=== PATIENT | female | born 1950 | race Caucasian/White ===

== ENCOUNTER 2018-05-03 14:30 | Outpatient (RCR) | payer MEDICARE, BC, SELFPAY ==
--- NOTE | 2018-04-05 13:24 | PTTR_ITS ---
DATE: 04/05/18 SUBJECTIVE: Janessa states she feels as though the dry needling may have helped some. Is noting less pain at rest. Did have some increase in symptoms following some computer work yesterday. OBJECTIVE: Therapeutic procedures ([id number]). Reviewed activation of deep neck flexors. Janessa did require verbal cues to avoid compensation of SCM activation. * [x] Electrical Stim Unattended - 62017a[1]: applied to the neck x15 min. while seated. * * [x] Ultrasound - (x [8] mins) - 83009p[1]: applied @3 megahertz 1.0 watt per cm sq cont to the left upper trap and levator scap * * Integrated dry needling. She gave verbal consent to receive dry needling today. * Homeostatic points: greater occipital bilaterally 1, greater auricular bilaterally 1/2, spinal accessory left 1, dorsal scapula left 1, supra scapula left 2, spinous process of T7 2, paravertebrals C4 through C7 bilaterally 2. Direct treatment time: 45 min. Total treatment time: 60 min. MM/gc
--- NOTE | 2018-04-11 10:30 | PTTR_ITS ---
DATE: 04/11/18 SUBJECTIVE: Indicated she has had to use her air conditioner the last few days and this still bothers her neck. Overall is doing better with occasional ear pain and neck is generally stiff in the mornings. HEP is going well. OBJECTIVE: x Ultrasound - (x 8 mins) - 64517c3: Thermal ultrasound x 3 mHz at 1.0 w/ cm2 x 8 minutes to left upper traps while in seated position. Manual therapy: ([id number]). Mobilization of neck and upper back while in seated and supine positions. This included tendon massage along the occiput, cervical and upper thoracic vertebrae , grade 2 PA mobs to cervical and upper thoracic vertebrae, TPM to SCMs, upper traps, lev scap and scalenes on the left. Gentle soft tissue stretching of c- spine soft tissue into rotation and side bending. * x Electrical Stim Unattended - 89376y6: Ended session with IFC and cryotherapy to posterior cervical spine soft tissue x 15 minutes while in seated position. Direct treatment time: 35 minutes Total treatment time: 50 minutes
--- NOTE | 2018-04-17 14:47 | PTTR_ITS ---
DATE: 04/17/18 SUBJECTIVE: Janessa reports she was reaching into a lower cabinet yesterday and had bilateral cervical pain that lasted 2 to 3 hrs. Did wake up the next morning symptom free. She is reporting 60% reduction in left sided cervical pain. Continues to deny radicular symptoms in the left upper trapezius / shoulder region. OBJECTIVE: Manual therapy: (88890c0). Cervical mobs, up slips, down slopes, lateral glides, OA release and PRTs to the left upper trapezius and levator scapula followed by left upper trapezius stretching using hold relax technique. Also, worked hold relax mobilization into rotation achieving 80 to 85 right and 75 left. * x Electrical Stim Unattended - 46415c8: applied to the neck while seated * [x] Ultrasound - (x [8] mins) - 45705c[1]:applied @3 megahertz 1.0 watt per cm sq cont to the left upper trap and levator scap Direct treatment time: 3:00 til 3:45 P.M. Held on dry needling today, but Janessa states she gets nearly two days of relief with this. Will reserve this as needed as cost is an issue for her. Plan: Continue as indicated above progressing with her cervical stabilization program. MM/gc
--- NOTE | 2018-04-19 15:00 | PTTR_ITS ---
DATE: 04/19/18 SUBJECTIVE: Roxy states she really feels as though she has turned the corner. Had a very good morning the past couple of mornings with more manageable pain. Has been holding up well with her HEP, and is very compliant with her cervical stabilization strengthening. OBJECTIVE: Manual therapy: (94482x1). Cervical mobs, up slips, down slopes, lateral glides, OA release, PRTs to the upper trap and levator scap. * x Electrical Stim Unattended - 47705h2: applied w/cryotherapy to the neck while seated x15 min. * [x] Ultrasound - (x 8 mins) - 29643k6: applied @1 megahertz 1.0 watt per cm sq continuous to the left upper trap and levator scap Direct treatment time: 3:00 til 3:45 P.M. Plan: Cut back to 1x per week holding on estim post treatment to see how she will hold up. Will continue with manual therapy progressing her cervical stabilization. MM/gc
--- NOTE | 2018-04-26 13:00 | PTTR_ITS ---
DATE: 04/26/18 SUBJECTIVE: Stated she pulled something in her low back when getting up off plinth at last visit. Cancelled last MSP appt due to continued low back pain. Saw the chiropractor about this and that has helpful, but still there. Has another chiropractor appt tomorrow. Would like to skip MSP again today to avoid increased irritation in low back. OBJECTIVE: Manual therapy: (87859f7). Mobilization of left cervical spine region while in seated position due to low back discomfort with lying on plinth. This included gentle manual traction, PRT to left upper traps, lev scap and scalenes, grade 2 PA mobs and TPM to rhomboid region. Performed AAROM into rotation utilizing hold relax technique. * x Ultrasound - (x 8 mins) - 69955l1: Began session with thermal ultrasound to left upper traps while in seated position x 8 minutes at 1.0 w/cm2 at 3 mHz. Ended session with cryotherapy only to posterior cervical spine soft tissue x 10 minutes while in seated position. Held on E-stim as per discussion with supervising PT. Direct treatment time: 30 minutes Total treatment time: 40 minutes
--- NOTE | 2018-05-03 15:52 | PTTR_ITS ---
DATE: 05/03/2018 SUBJECTIVE: My neck is really hurting today. Saw the chiropractor twice last week due to low back pain. He adjusted my neck too. [place] ok all last week. Pain came on the last 24 hours. I need to get back into my wellness program. OBJECTIVE: Manual therapy: ([id number]). Cervical spine mobilization consisting of upslips, downslopes, lateral glides to C3-7, OA relaease, STM to left upper trap and PRTs to left upper trap. IDN (at no charge) to symptomatic point in left upper trap 1 inch with local muscle twitch elicited. Also issued information regarding home TENS unit to purchase. * [] HEP review: [] * [] See flow sheet: [] * [] Provided skilled instruction in proper exercise performance: [] * [] Provided skilled manual cues to facilitate proper muscle recruitment and /or movement pattern: [] * [] Other: [] * [] Traction, Mechanical (flat rate) - 47089e[]: * x Electrical Stim Unattended - 73917v[1]: 15 minutes to upper back and neck focus on left side in sitting with cold pack. * * x Ultrasound - (x 8 mins) - 94211h2: Applied 1 MHz, 1.0 watt/cm2 continuous ultrasound to left upper trap with aquasonic gel. Direct treatment time: 45 Total treatment time: 45 from 3:00-3:45
== END 2018-05-04 23:59 | disposition home or self-care (01) ==
LOC: PT 14:30
PROVIDERS: PCP Nurse Practitioner Family; Referring Provider Registered Nurse; Visit Provider Registered Nurse
DX: M54.2 Cervicalgia (principal)
CPT/HCPCS: 97014; 97035; 97110; 97140

== ENCOUNTER 2019-02-21 09:18 | Outpatient (CLI) | payer MEDICARE, BC, SELFPAY ==
--- NOTE | 2019-02-21 09:04 | DI.RAD_ITS ---
SYMPTOM/DIAGNOSIS: ANTERIOR KNEE PAIN MERCHANT PROJECTIONS BOTH KNEES: The patient has a right knee prosthesis and the patellofemoral joint appears intact. Evaluation of the left knee reveals moderate DJD. There is narrowing of the lateral patellofemoral joint and hypertrophic spurring is demonstrated.
== END 2019-02-21 09:38 ==
PROVIDERS: PCP Nurse Practitioner Family; Visit Provider Orthopaedic Surgery
DX: M25.561 Pain in right knee (principal); Z96.651 Presence of right artificial knee joint; M17.12 Unilateral primary osteoarthritis, left knee
CPT/HCPCS: 73565

== ENCOUNTER 2020-06-23 11:50 | Outpatient (CLI) | payer MEDICARE, BC, SELFPAY ==
--- NOTE | 2020-06-23 09:00 | DI.RAD_ITS ---
EXAM: XR KNEE LT 2V AP,LAT CLINICAL HISTORY: left knee pain. TECHNIQUE: 2D digital imaging was performed. COMPARISON: CR RIGHT KNEE LIMITED 1 OR 2 VIEW from 08/04/2015 CR RIGHT KNEE LIMITED 1 OR 2 VIEW from 03/17/2016 CR RIGHT KNEE LIMITED 1 OR 2 VIEW from 01/18/2017 CR XR knee RT 1V from 02/21/2019 FINDINGS: No acute fracture is present. No bony destructive lesion is seen. There is severe narrowing of the lateral patellofemoral joint and moderate periarticular spurring.. There is mild narrowing of the medial femoral tibial joint and mild spurring from the femoral condyle s and tibial plateaus. A coarse calcification is noted adjacent to the medial femoral condyle. A sma ll joint effusion is seen. IMPRESSION: Degenerative changes, greatest of the lateral patellofemoral joint. DATA REPOSITORY: RADIATION DOSE DELIVERED:
== END 2020-06-23 12:10 ==
PROVIDERS: PCP Nurse Practitioner Family; Referring Provider Nurse Practitioner Family; Visit Provider Orthopaedic Surgery
DX: M17.12 Unilateral primary osteoarthritis, left knee (principal); M25.562 Pain in left knee; G56.02 Carpal tunnel syndrome, left upper limb
CPT/HCPCS: 99214; 73560

== ENCOUNTER 2020-07-09 08:05 | Outpatient (CLI) | payer MEDICARE, BC, SELFPAY ==
[2020-07-11 13:20] LABS: SARS-CoV-2 RNA Not Detected (NotDetected); SARS-CoV-2 RNA Source Nasal/Nares
== END 2020-07-09 08:25 ==
PROVIDERS: PCP Nurse Practitioner Family; Visit Provider Orthopaedic Surgery
DX: Z01.818 Encounter for other preprocedural examination (principal); Z11.59 Encounter for screening for other viral diseases; G56.02 Carpal tunnel syndrome, left upper limb
CPT/HCPCS: U0003

== ENCOUNTER 2020-07-13 06:08 | Day surgery (SDC) | payer MEDICARE, BC, SELFPAY ==
[2020-07-13 06:15] VITALS: BP 141/89; PULSE 64; RESP 18; TEMP 36.2; O2SAT 100
[2020-07-13] MEDS: Lactated Ringers 1,000 ML 80 ML IV (06:53)
[2020-07-13] MEDS: Normal Saline Flush 10 ML SYR IV (07:20)
[2020-07-13] MEDS: ceFAZolin 1 GM/50 ML BAG IVPB (07:34)
[2020-07-13] MEDS: EPINEPHrine 30 MG/30 ML VIAL (07:58)
[2020-07-13] MEDS: Bupivacaine 0.5% Pres-Free 30 ML VIAL (07:58)
--- NOTE | 2020-07-13 08:15 | W.PM.DSUDISC ---
Discharge Plan Disposition Patient Disposition: HOME Condition: Good Discharge Details Reason For Visit: L ECTR Attending Provider: Clive Kruse Primary Care Provider: Marita Lantigua Home Meds and New Rx's Prescriptions: New hydrocodone-acetaminophen 5-325 mg tablet 1 tab PO Q6H PRN (Reason: pain) Qty: 7 RF: 0 Continued meloxicam 15 mg tablet 15 mg PO DAILY Qty: 30 RF: 1 simvastatin [Zocor] 10 MG tablet 10 mg PO DAILY RF: 0 meclizine 12.5 MG tablet 12.5 mg PO PRN RF: 0 calcium carbonate-vitamin D3 1 EACH tablet 1 ea PO DAILY RF: 0 acetaminophen [Tylenol Extra Strength] 500 MG tablet 500 mg PO PRN RF: 0 flaxseed oil 1,000 MG capsule 1,000 mg PO BID RF: 0 lisinopril 10 MG tablet 10 mg PO DAILY RF: 0 metoprolol tartrate 50 MG tablet 50 mg PO BID RF: 0 aspirin [Aspirin Low-Strength] 81 MG tablet,chewable 81 mg PO DAILY RF: 0 naproxen sodium [Aleve] 220 MG capsule 220 mg PO PRN RF: 0 Multi For Her 18 mg iron-600 mcg-40 mcg Capsule 1 tab-cap PO QAM RF: 0 Discharge Instructions Additional Instructions: Elevate L hand above heart level as much as possible overnite tonite. Wiggle fingers L hand 10 times/hour when awake to prevent swelling. Keep dressings and splint dry and in place for 48 hours. After 48 hours, remove splint and dressings and begin to move L wrist. May then shower or bathe and get incision wet. Leave incision uncovered when it is dry and sealed. Use L hand as much as your discomfort allows. Follow up with in 2 weeks. Take tylenol for mild pain. Take hydrocodone for breakthru pain, if needed. Referrals: Clive Kruse MD [ [facility] STAFF PHYSICIAN] - (f/u in 2 weeks.) Equipment/Supplies: Splint Activity:: Activity as Tolerated Remove Dressings/Wound Care:: 48 hours Shower/Bathe:: 48 hours Diet:: As Tolerated Discharge Orders Discharge Orders: Discharge Order (Routine); Ordered 07/13/20 Ordered By: Clive Kruse
[2020-07-13 08:45] VITALS: BP 140/76; PULSE 62; RESP 18; TEMP 36.1; O2SAT 97
--- NOTE | 2020-07-13 09:09 | W.PM.OP ---
Date of service: 07/13/20 Time of Service: 09:09 Operative Note Operative Note DATE OF PROCEDURE: 07/13/20 PRE-OP DIAGNOSIS: Left carpal tunnel syndrome POST-OP DIAGNOSIS: same PROCEDURE: Left ECTR SURGEON: Clive Kruse ANESTHESIA: regional PATHOLOGY: none sent COMPLICATIONS: None Patient was transported to: same day Patient's condition: stable Indications: This is a 70-year-old white female with carpal tunnel symptoms on the left for several years. She has been managed with night splints. She previously has had a successful right E CTR in 2011. Over the last year her carpal tunnel symptoms have not been helped by night splinting. She is still awakened at night by numbness and pain in the median nerve distribution of her left hand. She experiences the numbness throughout the day. She has difficulty holding small objects with her left hand. Carpal tunnel release was recommended to alleviate his symptoms. The patient wished to undergo the endoscopic technique of carpal tunnel release. Risk and complications of procedure have been explained to her in detail. Procedure Description: Patient taken the operating room on 07/13/2020 where she was placed supine operative table. An IV regional anesthetic was administered to the left upper extremity. Once good anesthesia was obtained the left hand wrist and forearm were prepped and draped free in usual sterile fashion. Transverse incision was made in line with the proximal flexion crease of her left wrist. Incision was from the flexor carpi radialis tendon to the flexor carpi ulnaris tendon. Incision was carried down to the fascia. Subcutaneous veins were cauterized. The palmaris longus tendon was retracted radially and a distally based fascial flap was created to gain access to the carpal canal. Synovial reflector was then used to free up any soft tissue attachments to the undersurface of the volar carpal ligament. Series of obturators were used to get room for the endoscope. The endoscope/blade device was inserted in the carpal canal and advanced until the distal edge of the volar carpal ligament was clearly visualized. Care was taken the position endoscope against the hook of the hamate. The trigger was depressed elevating the blade and the elevated blade was then brought out through the skin incision transecting the volar carpal ligament. The endoscope was placed back in the carpal canal and the median nerve was seen to fall into the defect created by transecting the volar carpal ligament, confirming that the release was complete. Littler scissors were then used to perform a subcutaneous fasciotomy in a proximal direction to about 2 inches from the wound. Wound margins were infiltrated with 0.5% Marcaine with epinephrine solution. A median nerve block was performed with 0.5 some Marcaine with epinephrine solution. The wound was irrigated with saline solution. The skin edges were approximated with 2 horizontal mattress sutures of 4-0 nylon suture material. Wounds dressed with Xeroform gauze sterile gauze 4 x 4's wrapped with a Kerlix bandage then wrapped with an Sushant bandage. Her left wrist was placed in a commercial cock-up wrist splint. Patient tolerated the procedure well without complications. Her IV regional anesthesia was reversed without complications and she was discharged to the day surgery unit in good condition. Patient was discharged home from day surgery unit when fully recovered from her IV regional anesthesia. She is given instructions to elevate her left hand above heart level as much as possible overnight tonight. She is encouraged to wiggle her fingers 10 times an hour while awake to prevent swelling. She may remove her dressings and splint in 48 hours and begin to move her left wrist. She may shower and get incision wet after 48 hours. She can leave the incision uncovered when is dry and sealed. She is encouraged to use her left hand is much as discomfort allows. She will take Tylenol for mild pain. She is given a prescription of hydrocodone with APAP 5/325 1 tablet every 6 hours as needed for breakthrough pain. She will follow-up with Dr. Kruse in 2 weeks.
== END 2020-07-13 09:30 | disposition home or self-care (01) ==
PROVIDERS: PCP Nurse Practitioner Family; Visit Provider Orthopaedic Surgery
PROC: 01N54ZZ Release Median Nerve, Percutaneous Endoscopic Approach (ICD-10-PCS; CPT 29848; principal; 2020-07-13 07:30)
DX: G56.02 Carpal tunnel syndrome, left upper limb (principal); E78.00 Pure hypercholesterolemia, unspecified; I10 Essential (primary) hypertension
CPT/HCPCS: 29848; J0690; J1885; J2250; L3908

== ENCOUNTER → 2020-07-28 09:27 | Outpatient (BNVA) | payer MEDICARE, BC, SELFPAY | PROVIDERS: PCP Nurse Practitioner Family; Referring Provider Nurse Practitioner Family; Visit Provider Orthopaedic Surgery | DX: Z47.89 Encounter for other orthopedic aftercare (principal); G56.02 Carpal tunnel syndrome, left upper limb; M70.62 Trochanteric bursitis, left hip; I10 Essential (primary) hypertension | CPT/HCPCS: 99212 ==

== ENCOUNTER 2022-06-16 13:41 | Outpatient (CLI) | payer MEDICARE, BC, SELFPAY ==
--- NOTE | 2022-06-16 10:00 | DI.RAD_ITS ---
Exam(s) XR HAND LT COMPLETE EXAM: XR HAND LT COMPLETE CLINICAL HISTORY: pain in CMCJ. TECHNIQUE: 2D digital imaging was performed of the left hand. Three views were obtained. AP, later al and oblique views were obtained. COMPARISON: No exams were available for comparison FINDINGS: BONES: No acute fracture is present. No bony destructive lesion is seen. JOINTS: No dislocation present. Moderate to severe degenerative changes are seen in the hand with shelia nt space narrowing, subchondral sclerosis and periarticular spurring at multiple sites. The findings are most marked at the articulation of the scaphoid and the quadrangular bones in the interphalangea l joints of the hand. SOFT TISSUE: Normal. IMPRESSION: DJD of the hand. DATA REPOSITORY: RADIATION DOSE DELIVERED:
== END 2022-06-16 13:42 | disposition home or self-care (01) ==
LOC: DIORS 13:41
PROVIDERS: PCP Nurse Practitioner Family; Referring Provider Nurse Practitioner Family; Visit Provider Physician Assistant Surgical
DX: M19.042 Primary osteoarthritis, left hand (principal); M65.341 Trigger finger, right ring finger; Z96.641 Presence of right artificial hip joint; Z96.642 Presence of left artificial hip joint; Z96.651 Presence of right artificial knee joint
CPT/HCPCS: 99214; 73130

== ENCOUNTER 2022-06-21 03:37 | Outpatient (CLI) | payer MEDICARE, BC, SELFPAY ==
[2022-06-21 13:30] LABS: ESR 6 mm/hr (0-30)
[2022-06-21 23:04] LABS: Rheumatoid Factor <8.6 IU/mL (<12.0)
[2022-06-22 14:09] LABS: ANA Interpretation Negative (Negative)
[2022-06-23 14:18] LABS: dsDNA Ab, IgG <12.3 IU/mL (<30.0)
== END 2022-06-21 03:38 | disposition home or self-care (01) ==
LOC: LBO 03:37
PROVIDERS: PCP Nurse Practitioner Family; Visit Provider Student in an Organized Health Care Education/Training Program
DX: M25.542 Pain in joints of left hand (principal); M18.12 Unilateral primary osteoarthritis of first carpometacarpal joint, left hand; M65.341 Trigger finger, right ring finger; Z82.61 Family history of arthritis
CPT/HCPCS: 36415; 85652; 86038; 86140; 86225; 86235; 86431

== ENCOUNTER → 2022-07-25 10:14 | Outpatient (BNVA) | payer MEDICARE, BC, SELFPAY | PROVIDERS: PCP Nurse Practitioner Family; Referring Provider Nurse Practitioner Family; Visit Provider Student in an Organized Health Care Education/Training Program | DX: M19.042 Primary osteoarthritis, left hand (principal) | CPT/HCPCS: 99213 ==

== ENCOUNTER 2024-08-16 06:01 | Day surgery (SDC) | payer MEDICARE, BC, SELFPAY ==
[2024-08-16 06:10] VITALS: BP 151/98; PULSE 68; RESP 20; TEMP 36.4; O2SAT 99
[2024-08-16] MEDS: Tropicam./Phenyleph. (1/2.5%) 5 ML BTL OS ×3 (06:22→06:32)
--- NOTE | 2024-08-16 07:14 | W.ANESPRE ---
General Info Date of Service Date Performed: 08/16/24 Height: 5 ft 0.5 in Weight: 85.3 kg Body Mass Index (BMI): 36.1 Surgical Procedure: Operation Date: 08/16/24 07:40 Proposed Procedure Side Surgeon p Cataract Extraction with IOL Implant Left Danny Lema MD Meds Allergies and Home Medications Allergies Allergy/AdvReac Type Severity Reaction Status Date / Time codeine AdvReac Intermediate vomitting Verified 08/16/24 06:24 oxycodone HCl (From Percocet) AdvReac Intermediate Nausea Verified 08/16/24 06:24 Home Medication ?Medication ?Instructions ?Recorded acetaminophen 500 mg tablet 500 mg PO PRN 08/24/14 (Tylenol Extra Strength) aspirin 81 mg chewable tablet 81 mg PO DAILY 08/24/14 (Aspirin Low-Strength) calcium 600 mg (as 1 ea PO DAILY 08/24/14 carbonate)-vitamin D3 5 mcg (200 unit) tablet lisinopril 10 mg tablet 10 mg PO DAILY 08/24/14 meclizine 12.5 mg tablet 12.5 mg PO PRN 08/24/14 metoprolol tartrate 50 mg tablet 50 mg PO BID 08/24/14 naproxen sodium 220 mg capsule 220 mg PO PRN 08/24/14 (Aleve) [id number] fumarate 18 1 tab-cap PO QAM 07/10/20 mg-FA 600 mcg-vit K 40 mcg capsule (Multi For Her) omeprazole 20 mg capsule,delayed 20 mg PO DAILY 05/04/22 release simvastatin 40 mg tablet 40 mg PO DAILY 05/04/22 Current Visit Medications: Current Medications Generic Name Dose Route Start Last Admin Trade Name Freq PRN Reason Stop Dose Admin Acetaminophen 1,000 mg 08/16/24 06:00 Acetaminophen 500 Mg Tab PO 09/15/24 05:59 Q4H PRN PRN Balanced Salt Solution 500 ml 08/16/24 06:00 Balanced Salt Soln.-Plus 500 Ml Bag OP 09/15/24 05:59 DIRECTED DOMINIC Miscellaneous Medication 0 ml 08/16/24 06:00 Prednisolone 1%, Moxifloxacin 0.5%, Bromfenac 0.09% 5.6ml Btl OS 09/15/24 05:59 DIRECTED DOMINIC Miscellaneous Medication 0 ml 08/16/24 06:00 08/16/24 06:32 Tropicam./Phenyleph. (1/2.5%) 5 Ml Btl OS 09/15/24 05:59 1 drp DIRECTED DOMINIC Administration Tetracaine HCl 0 ml 08/16/24 06:00 Tetracaine 0.5% 4 Ml Btl OS 09/15/24 05:59 DIRECTED DOMINIC PFSH Active Problems Active Problems: Problem Status Onset Code Cortical age-related cataract, left eye Acute H25.012 Nuclear age-related cataract, left eye Acute H25.12 Trigger finger, right ring finger Acute M65.341 Arthritis of carpometacarpal joint Acute M19.049 Thyroid nodule Acute E04.1 Hyperlipidemia Acute E78.5 Trochanteric bursitis, left hip Acute M70.62 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 Left carpal tunnel syndrome Acute G56.02 Medical History Medical History Arthritis Diverticulosis GERD (gastroesophageal reflux disease) Hypertension Obesity Prolapse of bladder Vertigo Surgical History Surgical History Cholecystectomy 06/1998 colporrhaphy posterior 05.24.2012 Status post carpal tunnel release Right ECTR -DOS: 02/28/2012 Status post total right knee replacement (02/27/17) Tonsillectomy 1963 Total replacement of hip bilat L=12.8.2007 R=11.22.2003 Vaginal hysterectomy (05/24/12) Tobacco Smoking/Tobacco Use Status: Former Tobacco Use Alcohol Alcohol Intake: never Substance Use Substance use: Never Substance use type: does not use Vital Signs and Lab Results Vital Signs Most Recent Vital Signs in EMR: Most Recent Vital Signs Temp Pulse Resp BP Pulse Ox 36.4 C L 68 20 151/98 H 99 08/16/24 06:10 08/16/24 06:10 08/16/24 06:10 08/16/24 06:10 08/16/24 06:10 Lab Results Blood Type / Crossmatch: No Data to Display Complete Blood Count: No Data to Display Complete Metabolic Panel: No Data to Display Liver Function Panel: No Data to Display Coagulation Panel: No Data to Display Cardiac Panel: No Data to Display Arterial Blood Gas: No Data to Display Venous Blood Gas: No Data to Display Pancreas Panel: No Data to Display Thyroid Panel: No Data to Display Infectious Disease: No Data to Display Blood Cultures: No Data to Display Toxicology Panel: No Data to Display Anesthesia Assessment and Plan Anesthesia History Personal History: No History of Anesthesia Complications Family History: No Family History of Anesthesia Complications Exercise Tolerance Exercise Tolerance: Metabolic Equivalents>4 Pertinent Negatives Pertinent Negatives: No Symptoms of GERD, No Major Cardiovascular Symptoms or Complaints and No Major Pulmonary Symptoms or Complaints Cardiac & Pulmonary Exam Cardiac Exam: Normal S1/S2 Heart Sounds Pulmonary Exam: Clear Bilateral Breath Sounds Implantable Cardiac Device Does patient have a Pacemaker or an ICD?: No Airway Exam Known Difficult Airway: No Mallampati Class: 3 Mouth Opening: Normal (> 3cm) Thyromental Distance: Greater than 3 cm Neck Range of Motion: Limited ROM (arthritis) Neck Circumference: Normal Teeth Condition: Normal Dentition and Removable Dentures/Plates Upper (partial) ASA Classification ASA Score: ASA 2 Emergency Case?: No NPO Status NPO Status: NPO Clears >2 hours, Solids >8 hours Anesthesia Plan Resuscitation Status: Full Code Anesthesia Technique: MAC Anesthesia Airway Planned: Natural Airway Monitors Used: Standard Monitors
[2024-08-16 07:17] VITALS: BMI 36.1
[2024-08-16] MEDS: Lidocaine 1% Pres-Free 5 ML VIAL (07:39)
[2024-08-16] MEDS: Phenylephrine/Lidocaine (15/10) MG/ML 1 ML VIAL (07:41)
[2024-08-16] MEDS: Duovisc Viscoelastic System EACH 1 EACH (07:42)
[2024-08-16] MEDS: Povidone-Iodine Ophth 30 ML BTL (07:43)
[2024-08-16] MEDS: Balanced Salt Soln.-PLUS 500 ML BAG OP (07:44)
[2024-08-16] MEDS: Prednisolone 1%, Moxifloxacin 0.5%, Bromfenac 0.09% 5.6ML BTL OS (07:45)
[2024-08-16] MEDS: Tetracaine 0.5% 4 ML BTL OS (07:46)
[2024-08-16 07:58] VITALS: BP 131/95; PULSE 61; RESP 20; TEMP 36.1; O2SAT 100
--- NOTE | 2024-08-16 07:58 | W.PM.DSUDISC ---
Date of service: 08/16/24 Discharge Plan Disposition Patient Disposition: Home Discharge Details Attending Provider: Danny Lema Primary Care Provider: Radha Goldman Home Meds and New Rx's Prescriptions: No Action meclizine 12.5 MG tablet 12.5 mg PO PRN calcium carbonate-vitamin D3 1 EACH tablet 1 ea PO DAILY acetaminophen [Tylenol Extra Strength] 500 MG tablet 500 mg PO PRN lisinopril 10 MG tablet 10 mg PO DAILY metoprolol tartrate 50 MG tablet 50 mg PO BID aspirin [Aspirin Low-Strength] 81 MG tablet,chewable 81 mg PO DAILY naproxen sodium [Aleve] 220 MG capsule 220 mg PO PRN omeprazole 20 mg capsule,delayed release(DR/EC) 20 mg PO DAILY simvastatin 40 mg tablet 40 mg PO DAILY Multi For Her 18 mg iron-600 mcg-40 mcg Capsule 1 tab-cap PO QAM Discharge Instructions Stand Alone Forms: DSU Post-Op CataractLilly (DSU) Discharge Orders Discharge Orders: Discharge Order (Routine); Ordered 08/16/24 Ordered By: Danny Lema DS: Diagnosis Discharge Diagnosis (1) Cortical age-related cataract, left eye: Status: Resolved (2) Nuclear age-related cataract, left eye: Status: Resolved
--- NOTE | 2024-08-16 07:58 | W.PM.OP ---
Operative Note Operative Note PRE-OP DIAGNOSIS: Nuclear/cortical cataract, left eye POST-OP DIAGNOSIS: same PROCEDURE: Cataract extraction using phacoemulsification with intraocular lens implant, left eye SURGEON: Danny Lema ANESTHESIA TYPE: Local By Surgeon and MAC Refer to Anesthesia Record PATHOLOGY: none sent COMPLICATIONS: None Patient was transported to: same day Patient's condition: stable Implants: Jonathan Clareon [id number] Indications: Progressive decreased vision due to cataract, left eye Procedure Description: CATARACT SURGERY OPERATIVE REPORT PREOPERATIVE DIAGNOSIS: Nuclear/cortical cataract, left eye POSTOPERATIVE DIAGNOSIS: Same OPERATION: Cataract extraction using phacoemulsification with posterior chamber intraocular lens implant, left eye. IOL: IOL Cement Finishing Supervisor/Model: Jonathan Clareon [id number] IOL Power: + 13.0 diopters IOL Serial Number: [id number] Optic Diameter: 6.0mm Haptic/Overall Diameter: 13.0mm PHACO INFO: Jonathan Centurion Vision System with OZil and Active Fluidics Cumulative Dispersed Energy (CDE): 4.97 seconds SURGEON: Danny Lema MD, TROY ANESTHESIA: Monitored Anesthesia Care (MAC), with local sub-tenon's anesthetic infiltration COMPLICATIONS: None SPECIMENS: None INDICATIONS FOR PROCEDURE: The patient is a 74-year-old lady with history of myopia who has developed a symptomatic nuclear/cortical cataract in the left eye. She is significantly symptomatic that she desires cataract surgery and attempt to improve and maximize her vision. The option of cataract surgery was offered to the patient and she wished to proceed. See office notes for detailed information. PROCEDURE: The correct surgical eye was identified and marked as the left eye and the pupil was dilated in the preoperative area using mydriatics and cycloplegics. The dilated pupil size was 8.0 mm. The patient elected to proceed without oral sedation. The patient was brought to the operating room where cardiopulmonary monitoring was instituted and surgical time-out was performed, confirming the correct operative eye and IOL power. Topical anesthesia was administered and ophthalmic povidone-iodine 5% was instilled into the conjunctival fornices. The jose-ocular area was prepped with Betadine 10% solution and draped in the usual sterile fashion for intraocular surgery, including an aperture drape. A Tegaderm transparent film dressing was cut in half and used to cover the lashes and lid margins. Care was taken to sequester the lashes and lid margins under the Tegaderm dressing. A lid speculum was placed between the lids of the operative eye and the Jonathan Lux[employer] Revalia operating microscope was maneuvered into position. Nyla scissors were then used to make a conjunctival buttonhole approximately 6mm posterior to the limbus in the inferonasal quadrant. Blunt dissection was carried out to expose bare sclera, and a blunt-tipped sub-tenon?s anesthesia cannula was introduced and passed posteriorly along the globe where non-preserved plain lidocaine was injected into posterior sub-Tenon?s space. A sideport knife was used to make a paracentesis port. Intraocular phenylephrine/lidocaine was injected into the anterior chamber. The anterior chamber was then filled with viscoelastic. A keratome knife was used construct a two-plane clear corneal tunnel extending 2.0mm into clear cornea. A flap was raised on the anterior capsule and capsulorhexis forceps were used to complete a continuous curvilinear capsulorhexis of 5.0 mm. Balanced salt solution was then used to perform cortical cleaving hydrodissection and nuclear hydrodelineation until the lens could be freely rotated within the capsular bag. The lens nucleus was then disassembled and removed within the capsular bag and iris plane using phacoemulsification. Residual cortical material was removed using the irrigation/aspiration handpiece. The posterior capsule was carefully polished to remove as much residual lens epithelial cells as safely possible. The capsular bag was then inflated and the anterior chamber deepened with viscoelastic. The lens implant described above was inserted into the capsular bag using the Jonathan Autonome Injector. A Kuglen hook was used to dial the IOL into position. Residual viscoelastic was then removed first from posterior to the IOL, then from the anterior chamber using the I/A handpiece. The lens implant was noted to center nicely within the capsular bag. The incisions were stromally hydrated, and the anterior chamber was reformed using BSS. Then 0.5cc of moxifloxacin 1.0mg/ml were injected into the capsular bag and anterior chamber. The incisions were checked with a Weck spear and found to be secure. Several drops of ophthalmic povidone-iodine 5% were then applied to the eye followed by two drops of combination steroid/NSAID/antibiotic solution. The drapes were removed and a clear plastic protective eye shield was placed over the eye. The patient was then returned to Same Day Surgery in stable condition. Date of Procedure: 08/16/24
--- NOTE | 2024-08-16 08:23 | W.ANESPOSTOP ---
Postoperative Evaluation Date, Time and Location Date Performed: 08/16/24 Time Performed: 08:09 Patient Location: Day Surgery Unit Vital Signs Most Recent Imported Vital Signs: Most Recent Vital Signs Temp Pulse Resp BP Pulse Ox 36.1 C L 61 20 131/95 H 100 08/16/24 07:58 08/16/24 07:58 08/16/24 07:58 08/16/24 07:58 08/16/24 07:58 Pain Score Most Recent Pain Score: Most Recent Pain Score Pain Level 0 08/16/24 07:58 Assessment Mental Status: Awake (Alert & Oriented to Patient Baseline) Airway and Respiratory Function: Patent airway with normal (patient baseline) respiratory exam Cardiovascular Function: Hemodynamically Stable Hydration Status: Adequately Hydrated Nausea & Vomiting: No Nausea or Vomiting Pain: Pt. Denies Any Pain Peripheral Nerve Block: Patient did not receive a nerve block
== END 2024-08-16 08:19 | disposition home or self-care (01) ==
LOC: SUR 06:02
PROVIDERS: PCP Nurse Practitioner Family; Visit Provider Ophthalmology
PROC: (CPT 66984; principal; 2024-08-16 07:30)
DX: H25.012 Cortical age-related cataract, left eye (principal); H25.12 Age-related nuclear cataract, left eye
CPT/HCPCS: 66984; 00123; V2632; J2003

== ENCOUNTER 2024-08-23 10:46 | Day surgery (SDC) | payer MEDICARE, BC, SELFPAY ==
--- NOTE | 2024-08-23 08:25 | W.ANESPRE ---
General Info Date of Service Date Performed: 08/23/24 Height: 5 ft 0.5 in Weight: 85.3 kg Body Mass Index (BMI): 36.1 Surgical Procedure: Operation Date: 08/23/24 13:40 Proposed Procedure Side Surgeon p Cataract Extraction with IOL Implant Right Danny Lema MD Meds Allergies and Home Medications Allergies Allergy/AdvReac Type Severity Reaction Status Date / Time codeine AdvReac Intermediate vomitting Verified 08/23/24 11:00 oxycodone HCl (From Percocet) AdvReac Intermediate Nausea Verified 08/23/24 11:00 Home Medication ?Medication ?Instructions ?Recorded acetaminophen 500 mg tablet 500 mg PO PRN 08/24/14 (Tylenol Extra Strength) aspirin 81 mg chewable tablet 81 mg PO DAILY 08/24/14 (Aspirin Low-Strength) calcium 600 mg (as 1 ea PO DAILY 08/24/14 carbonate)-vitamin D3 5 mcg (200 unit) tablet lisinopril 10 mg tablet 10 mg PO DAILY 08/24/14 meclizine 12.5 mg tablet 12.5 mg PO PRN 08/24/14 metoprolol tartrate 50 mg tablet 50 mg PO BID 08/24/14 naproxen sodium 220 mg capsule 220 mg PO PRN 08/24/14 (Aleve) [id number] fumarate 18 1 tab-cap PO QAM 07/10/20 mg-FA 600 mcg-vit K 40 mcg capsule (Multi For Her) omeprazole 20 mg capsule,delayed 20 mg PO DAILY 05/04/22 release simvastatin 40 mg tablet 40 mg PO DAILY 05/04/22 Current Visit Medications: Current Medications Generic Name Dose Route Start Last Admin Trade Name Freq PRN Reason Stop Dose Admin Acetaminophen 1,000 mg 08/23/24 06:00 Acetaminophen 500 Mg Tab PO 09/22/24 05:59 Q4H PRN PRN Balanced Salt Solution 500 ml 08/23/24 06:00 Balanced Salt Soln.-Plus 500 Ml Bag OP 09/22/24 05:59 DIRECTED DOMINIC Miscellaneous Medication 0 ml 08/23/24 06:00 Prednisolone 1%, Moxifloxacin 0.5%, Bromfenac 0.09% 5.6ml Btl OD 09/22/24 05:59 DIRECTED DOMINIC Miscellaneous Medication 0 ml 08/23/24 06:00 Tropicam./Phenyleph. (1/2.5%) 5 Ml Btl OD 09/22/24 05:59 DIRECTED DOMINIC Tetracaine HCl 0 ml 08/23/24 06:00 Tetracaine 0.5% 4 Ml Btl OD 09/22/24 05:59 DIRECTED [facility] PFSH Active Problems Active Problems: Problem Status Onset Code Cortical age-related cataract, right eye Acute H25.011 Nuclear age-related cataract, right eye Acute H25.11 Cortical age-related cataract, left eye Resolved H25.012 Nuclear age-related cataract, left eye Resolved H25.12 Trigger finger, right ring finger Acute M65.341 Arthritis of carpometacarpal joint Acute M19.049 Thyroid nodule Acute E04.1 Hyperlipidemia Acute E78.5 Trochanteric bursitis, left hip Acute M70.62 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 Left carpal tunnel syndrome Acute G56.02 Medical History Medical History Arthritis Diverticulosis GERD (gastroesophageal reflux disease) Hypertension Obesity Prolapse of bladder Vertigo Surgical History Surgical History Cholecystectomy 06/1998 colporrhaphy posterior 05.24.2012 Status post carpal tunnel release Right ECTR -DOS: 02/28/2012 Status post total right knee replacement (02/27/17) Tonsillectomy 1963 Total replacement of hip bilat L=12.8.2007 R=11.22.2003 Vaginal hysterectomy (05/24/12) Tobacco Smoking/Tobacco Use Status: Former Tobacco Use Alcohol Alcohol Intake: never Substance Use Substance use: Never Substance use type: does not use Vital Signs and Lab Results Vital Signs Most Recent Vital Signs in EMR: Temp Pulse Resp BP Pulse Ox 35.9 C L 58 L 14 124/91 H 99 08/23/24 10:52 08/23/24 10:52 08/23/24 10:52 08/23/24 10:52 08/23/24 10:52 Lab Results Blood Type / Crossmatch: No Data to Display Complete Blood Count: No Data to Display Complete Metabolic Panel: No Data to Display Liver Function Panel: No Data to Display Coagulation Panel: No Data to Display Cardiac Panel: No Data to Display Arterial Blood Gas: No Data to Display Venous Blood Gas: No Data to Display Pancreas Panel: No Data to Display Thyroid Panel: No Data to Display Infectious Disease: No Data to Display Blood Cultures: No Data to Display Toxicology Panel: No Data to Display Anesthesia Assessment and Plan Anesthesia History Personal History: No History of Anesthesia Complications Family History: No Family History of Anesthesia Complications Exercise Tolerance Exercise Tolerance: Metabolic Equivalents>4 Cardiac & Pulmonary Exam Cardiac Exam: Normal S1/S2 Heart Sounds Pulmonary Exam: Clear Bilateral Breath Sounds Implantable Cardiac Device Does patient have a Pacemaker or an ICD?: No Airway Exam Known Difficult Airway: No Mallampati Class: 3 Mouth Opening: Normal (> 3cm) Thyromental Distance: Greater than 3 cm Neck Range of Motion: Limited ROM (arthritis) Neck Circumference: Normal Teeth Condition: Normal Dentition and Removable Dentures/Plates Upper (partial) ASA Classification ASA Score: ASA 2 Emergency Case?: No NPO Status NPO Status: NPO Clears >2 hours, Solids >8 hours Anesthesia Plan Resuscitation Status: Full Code Anesthesia Technique: MAC Anesthesia Airway Planned: Natural Airway Monitors Used: Standard Monitors Preoperative Comments:: 74 yo for repeat cataract. No MKO previous, no issues. No changes in health history.
[2024-08-23 10:52] VITALS: BP 124/91; PULSE 58; RESP 14; TEMP 35.9; O2SAT 99
[2024-08-23] MEDS: Tropicam./Phenyleph. (1/2.5%) 5 ML BTL OD ×3 (11:03→11:13)
[2024-08-23 11:22] VITALS: BMI 36.1
[2024-08-23] MEDS: Duovisc Viscoelastic System EACH 1 EACH (11:55)
[2024-08-23] MEDS: Povidone-Iodine Ophth 30 ML BTL (11:57)
[2024-08-23] MEDS: Lidocaine 1% Pres-Free 5 ML VIAL (11:57)
[2024-08-23] MEDS: Phenylephrine/Lidocaine (15/10) MG/ML 1 ML VIAL (11:57)
[2024-08-23] MEDS: Balanced Salt Soln.-PLUS 500 ML BAG OP (11:58)
[2024-08-23] MEDS: Tetracaine 0.5% 4 ML BTL OD (11:59)
[2024-08-23] MEDS: Prednisolone 1%, Moxifloxacin 0.5%, Bromfenac 0.09% 5.6ML BTL OD (11:59)
[2024-08-23 12:09] VITALS: BP 105/88; PULSE 69; RESP 16; TEMP 36.2; O2SAT 99
--- NOTE | 2024-08-23 12:12 | ROE_ITS ---
Operative Note Operative Note PRE-OP DIAGNOSIS: Nuclear/cortical cataract, right eye POST-OP DIAGNOSIS: same PROCEDURE: Cataract extraction using phacoemulsification with intraocular lens implant, right eye SURGEON: Danny Lema ANESTHESIA TYPE: Local By Surgeon and MAC Refer to Anesthesia Record ESTIMATED BLOOD LOSS: 0 PATHOLOGY: none sent COMPLICATIONS: None Patient was transported to: same day Patient's condition: stable Implants: Jonathan Clareon [id number] Indications: Progressive decreased vision due to cataract, right eye Procedure Description: CATARACT SURGERY OPERATIVE REPORT PREOPERATIVE DIAGNOSIS: Nuclear/cortical cataract, right eye POSTOPERATIVE DIAGNOSIS: Same OPERATION: Cataract extraction using phacoemulsification with posterior chamber intraocular lens implant, right eye. IOL: IOL Patient Safety Coordinator/Model: Jonathan Clareon [id number] IOL Power: +13.5 diopters IOL Serial Number: [id number] Optic Diameter: 6.0mm Haptic/Overall Diameter: 13.0mm PHACO INFO: Jonathan Centurion Vision System with OZil and Active Fluidics Cumulative Dispersed Energy (CDE): 2.25 seconds SURGEON: Danny Lema MD, TROY ANESTHESIA: Monitored Anesthesia Care (MAC), with local sub-tenon's anesthetic infiltration COMPLICATIONS: None SPECIMENS: None INDICATIONS FOR PROCEDURE: The patient is a 74-year-old lady with history of diminished visual acuity in both eyes secondary to the development of bilateral nuclear/cortical cataract. She has already undergone cataract surgery in the left eye and is doing well postoperatively. She now presents for cataract surgery in the right eye. See office notes for detailed information. PROCEDURE: The correct surgical eye was identified and marked as the right eye and the pupil was dilated in the preoperative area using mydriatics and cycloplegics. The dilated pupil size was 8.0 mm. The patient elected to proceed without oral sedation. The patient was brought to the operating room where cardiopulmonary monitoring was instituted and surgical time-out was performed, confirming the correct operative eye and IOL power. Topical anesthesia was administered and ophthalmic povidone-iodine 5% was instilled into the conjunctival fornices. The jose-ocular area was prepped with Betadine 10% solution and draped in the usual sterile fashion for intraocular surgery, including an aperture drape. A Tegaderm transparent film dressing was cut in half and used to cover the lashes and lid margins. Care was taken to sequester the lashes and lid margins under the Tegaderm dressing. A lid speculum was placed between the lids of the operative eye and the Jonathan Lux[employer] Revalia operating microscope was maneuvered into position. Nyla scissors were then used to make a conjunctival buttonhole approximately 6mm posterior to the limbus in the inferonasal quadrant. Blunt dissection was carried out to expose bare sclera, and a blunt-tipped sub-tenon?s anesthesia cannula was introduced and passed posteriorly along the globe where non- preserved plain lidocaine was injected into posterior sub-Tenon?s space. A sideport knife was used to make a paracentesis port. Intraocular phenylephrine/lidocaine was injected into the anterior chamber. The anterior chamber was then filled with viscoelastic. A keratome knife was used to construct a two--plane clear corneal tunnel extending 2.0mm into clear cornea. A flap was raised on the anterior capsule and capsulorhexis forceps were used to complete a continuous curvilinear capsulorhexis of 5.0mm. Balanced salt solution was then used to perform cortical cleaving hydrodissection and nuclear hydrodelineation until the lens could be freely rotated within the capsular bag. The lens nucleus was then disassembled and removed within the capsular bag and iris plane using phacoemulsification. Residual cortical material was removed using the I/A handpiece. The posterior capsule was carefully polished to remove as much residual lens epithelial cells as safely possible. The capsular bag was then inflated and the anterior chamber deepened with cohesive viscoelastic. The lens implant described above was inserted into the capsular bag using the Jonathan Autonome Injector. A Kuglen hook was used to dial the IOL into position. Residual viscoelastic was then removed first from posterior to the IOL, then from the anterior chamber using the I/A handpiece. The lens implant was noted to center nicely within the capsular bag. The incisions were stromally hydrated, and the anterior chamber was reformed using BSS. Then 0.5cc of moxifloxacin 1.0mg/ml were injected into the capsular bag and anterior chamber. The incisions were checked with a Weck spear and found to be secure. Several drops of ophthalmic povidone-iodine 5% were then applied to the eye followed by two drops of combination steroid/NSAID/antibiotic solution. The drapes were removed and a clear plastic protective eye shield was placed over the eye. The patient was then returned to Same Day Surgery in stable condition. Date of Procedure: 08/23/24
--- NOTE | 2024-08-23 12:12 | W.PM.DSUDISC ---
Date of service: 08/23/24 Discharge Plan Disposition Patient Disposition: Home Discharge Details Attending Provider: Danny Lema Primary Care Provider: Radha Goldman Home Meds and New Rx's Prescriptions: No Action meclizine 12.5 MG tablet 12.5 mg PO PRN calcium carbonate-vitamin D3 1 EACH tablet 1 ea PO DAILY acetaminophen [Tylenol Extra Strength] 500 MG tablet 500 mg PO PRN lisinopril 10 MG tablet 10 mg PO DAILY metoprolol tartrate 50 MG tablet 50 mg PO BID aspirin [Aspirin Low-Strength] 81 MG tablet,chewable 81 mg PO DAILY naproxen sodium [Aleve] 220 MG capsule 220 mg PO PRN omeprazole 20 mg capsule,delayed release(DR/EC) 20 mg PO DAILY simvastatin 40 mg tablet 40 mg PO DAILY Multi For Her 18 mg iron-600 mcg-40 mcg Capsule 1 tab-cap PO QAM Discharge Instructions Stand Alone Forms: [facility] Post-Op CataractLilly ([facility]) Discharge Orders Discharge Orders: Discharge Order (Routine); Ordered 08/23/24 Ordered By: Danny Lema DS: Diagnosis Discharge Diagnosis (1) Cortical age-related cataract, right eye: Status: Resolved (2) Nuclear age-related cataract, right eye: Status: Resolved
[2024-08-23] MEDS: Acetaminophen 500 MG TAB 1000 MG PO (12:16)
--- NOTE | 2024-08-23 12:27 | W.ANESPOSTOP ---
Postoperative Evaluation Date, Time and Location Date Performed: 08/23/24 Time Performed: 12:27 Patient Location: Day Surgery Unit Vital Signs Most Recent Imported Vital Signs: Most Recent Vital Signs Temp Pulse Resp BP Pulse Ox 36.2 C L 69 16 105/88 99 08/23/24 12:09 08/23/24 12:09 08/23/24 12:09 08/23/24 12:09 08/23/24 12:09 Pain Score Most Recent Pain Score: Most Recent Pain Score Pain Level 5 08/23/24 12:09 Assessment Mental Status: Awake (Alert & Oriented to Patient Baseline) Airway and Respiratory Function: Patent airway with normal (patient baseline) respiratory exam Cardiovascular Function: Hemodynamically Stable Hydration Status: Adequately Hydrated Nausea & Vomiting: No Nausea or Vomiting Pain: Pt. Denies Any Pain Peripheral Nerve Block: Patient did not receive a nerve block
[2024-08-23 12:34] VITALS: BP 137/79; PULSE 66; RESP 16; TEMP 36.3; O2SAT 99
== END 2024-08-23 12:40 | disposition home or self-care (01) ==
LOC: SUR 10:46
PROVIDERS: PCP Nurse Practitioner Family; Visit Provider Ophthalmology
PROC: (CPT 66984; principal; 2024-08-23 13:30)
DX: H25.011 Cortical age-related cataract, right eye (principal); H25.11 Age-related nuclear cataract, right eye; Z98.42 Cataract extraction status, left eye
CPT/HCPCS: 66984; 00123; V2632; J2003